=== PATIENT | female | born 1960 | race African-American/Black ===

== ENCOUNTER 2017-02-01 15:35 | Inpatient (IN) | payer OTHER ==
[~2017-02-01] VITALS: Ht 160 cm; Wt 81.6 kg
[2017-02-01] MEDS ORDERED: ONDANSETRON HCL 4MG/2ML VIAL IV STA (16:08)
[2017-02-01] MEDS ORDERED: MORPHINE SULFATE 4 MG/ML CPJ (NOT FOR IM USE) IV STA (16:08)
[2017-02-01 16:48] LABS: BASOPHILS % 0.8 % (0.0-2.0); EOSINOPHILS % 1.7 % (0.0-5.0); HEMATOCRIT. 39.4 % (36.0-48.0); HEMOGLOBIN. 13.1 g/dL (12.0-16.0); LYMPHOCYTES % 32.5 % (20.0-50.0); MEAN CORPUSCULAR HEMOGLOBIN 29.2 pg (28.0-32.0); MEAN CORPUSCULAR VOLUME 87.8 fL (81.0-99.0); MEAN PLATELET VOLUME 7.4 fl (7.4-10.4); PLATELET 314 x1000/uL (130-400); RED BLOOD CELL COUNT 4.49 mill/uL (4.2-5.4); RED CELL DISTRIBUTION WIDTH 14.5 % (11.6-14.6)
[2017-02-01 16:50] LABS: CARBON DIOXIDE 25 mEq/L (21-32); CHLORIDE 106 mEq/L (98-107); INR 1.1; PROTHROMBIN TIME 11.5 sec (9.4-11.6)
[2017-02-01 16:58] LABS: TROPONIN I < 0.02 ng/mL (0.00-0.04)
[2017-02-01] MEDS ORDERED: ASPIRIN 325MG EC TABLET PO ONE (17:30)
[2017-02-01 22:00] VITALS: BP 119/65
[2017-02-01] MEDS ORDERED: ENOXAPARIN 40MG/0.4ML SYR SUBCUT SCH (23:15)
[2017-02-01] MEDS ORDERED: CLONIDINE 0.1MG TABLET PO PRN (23:15)
[2017-02-01] MEDS ORDERED: DIPHENHYDRAMINE 50MG/ML VIAL IV PRN (23:15)
[2017-02-01] MEDS ORDERED: HYDROCODONE/ACETAMINOPHEN 5/325MG TABLET PO PRN (23:15)
[2017-02-01] MEDS ORDERED: MORPHINE SULFATE 2 MG/ML CPJ (NOT FOR IM USE) IV PRN (23:15)
[2017-02-01] MEDS ORDERED: ONDANSETRON HCL 4MG/2ML VIAL IV PRN (23:15)
[2017-02-02] MEDS ORDERED: ASPI-986 PO (01:45)
[2017-02-02 08:00] VITALS: BP 158/75
[2017-02-02] MEDS: ENOXAPARIN 30MG/0.3ML SYR SUBCUT SCH ×2 (08:34→08:38)
[2017-02-02] MEDS ORDERED: THIAMINE HCL 100MG TABLET PO SCH (09:00)
[2017-02-02] MEDS ORDERED: ASPIRIN 81MG EC TABLET PO SCH (09:00)
[2017-02-02 09:14] LABS: CREATINE KINASE 86 IU/L (26-192); CREATINE KINASE MB FRACTION < 0.5 ng/mL (0.5-3.6); TROPONIN I < 0.02 ng/mL (0.00-0.04)
[2017-02-02 10:13] LABS: BASOPHILS % 0.5 % (0.0-2.0); EOSINOPHILS % 1.3 % (0.0-5.0); HEMATOCRIT. 41.3 % (36.0-48.0); HEMOGLOBIN. 13.9 g/dL (12.0-16.0); LYMPHOCYTES % 30.5 % (20.0-50.0); MEAN CORPUSCULAR HEMOGLOBIN 29.7 pg (28.0-32.0); MEAN CORPUSCULAR VOLUME 88.6 fL (81.0-99.0); MEAN PLATELET VOLUME 7.8 fl (7.4-10.4); MONOCYTES % 6.6 % (2.0-8.0); NEUTROPHILS % 61.1 % (40.0-76.0); PLATELET 331 x1000/uL (130-400); RED BLOOD CELL COUNT 4.66 mill/uL (4.2-5.4); RED CELL DISTRIBUTION WIDTH 14.6 % (11.6-14.6)
[2017-02-02 10:16] LABS: CHLORIDE 105 mEq/L (98-107)
[2017-02-02 10:25] LABS: CARBON DIOXIDE 22 mEq/L (21-32)
[2017-02-02 12:00] VITALS: BP 139/62
[2017-02-02 15:32] LABS: CLARITY URINE CLEAR (CLEAR); COLOR URINE YELLOW (YELLOW); GLUCOSE URINE NEGATIVE (NEGATIVE); KETONES URINE NEGATIVE (NEGATIVE); LEUKOCYTE ESTERASE URINE NEGATIVE (NEGATIVE); NITRITE URINE NEGATIVE (NEGATIVE); OCCULT BLOOD URINE NEGATIVE (NEGATIVE); PROTEIN URINE NEGATIVE (NEGATIVE); SPECIFIC GRAVITY URINE 1.018 (1.005-1.030)
[2017-02-02 15:57] LABS: *AMPHETAMINES SCREEN URINE NEGATIVE (NEGATIVE); *BARBITURATES SCREEN URINE NEGATIVE (NEGATIVE); *BENZODIAZEPINES SCREEN URINE NEGATIVE (NEGATIVE); *COCAINE SCREEN URINE NEGATIVE (NEGATIVE); CANNABINOID URINE SCREEN NEGATIVE (NEGATIVE); METHADONE URINE SCREEN NEGATIVE (NEGATIVE); OPIATES URINE SCREEN NEGATIVE (NEGATIVE); PHENCYCLIDINE URINE SCREEN NEGATIVE (NEGATIVE)
[2017-02-02 16:00] VITALS: BP 143/71
[2017-02-02 17:06] LABS: CREATINE KINASE 91 IU/L (26-192); CREATINE KINASE MB FRACTION < 0.5 ng/mL (0.5-3.6); TROPONIN I < 0.02 ng/mL (0.00-0.04)
[2017-02-02 20:00] VITALS: BP 145/73
[2017-02-02 21:34] VITALS: BP 145/73
[2017-02-03] MEDS ORDERED: ENOXAPARIN 40MG/0.4ML SYR SUBCUT SCH (09:00)
== END 2017-02-02 22:10 | disposition short-term general hospital (02) | DRG 392 ==
LOC: ER 15:35 → 6WST 17:22 → EDBEDREQ 17:24 → ENRESERV 21:04
PROVIDERS: ADMIT Internal Medicine Nephrology; ATTEND Internal Medicine Nephrology
DX: K21.9 Gastro-esophageal reflux disease without esophagitis (principal); E78.00 Pure hypercholesterolemia, unspecified; E78.5 Hyperlipidemia, unspecified; I10 Essential (primary) hypertension; F17.200 Nicotine dependence, unspecified, uncomplicated; Z90.10 Acquired absence of unspecified breast and nipple; Z85.9 Personal history of malignant neoplasm, unspecified; Z71.6 Tobacco abuse counseling
CPT/HCPCS: 36415; 71010; 80053; 80305; 81003; 82550; 82553; 83880; 84484; 85025; 85610; 93005; 93306; 93970; 99285; 99406; J1650; J2270; J2405

== ENCOUNTER 2024-04-07 17:42 | Inpatient (IN) | payer OTHER, MEDICAID ==
[~2024-04-07] VITALS: Ht 157.5 cm; Wt 69.9 kg
[2024-04-07 18:29] LABS: BASOPHILS % 0.5 % (0.0-2.0); EOSINOPHILS % 2.4 % (0.0-5.0); HEMOGLOBIN 10.7 g/dL (12.0-16.0); HEMOGLOBIN. 10.7 g/dL (12.0-16.0); LYMPHOCYTES % 25.2 % (20.0-50.0); MEAN CORPUSCULAR HEMOGLOBIN 28.6 pg (28.0-32.0); MEAN CORPUSCULAR HGB CONC 32.5 g/dL (31.0-37.0); MEAN CORPUSCULAR VOLUME 88.1 fL (81.0-99.0); MEAN PLATELET VOLUME 7.1 fl (7.4-10.4); NEUTROPHILS % 65.9 % (40.0-76.0); PLATELET 354 x1000/uL (130-400); RED BLOOD CELL COUNT 3.74 mill/uL (4.2-5.4); RED CELL DISTRIBUTION WIDTH 14.7 % (11.6-14.6); WHITE BLOOD COUNT 7.2 x1000/uL (4.5-11.0)
[2024-04-07 18:38] LABS: CARBON DIOXIDE 25 mEq/L (21-32); CHLORIDE 107 mEq/L (98-107); POTASSIUM 3.9 mEq/L (3.5-5.1); SODIUM 139 mEq/L (136-145)
[2024-04-07 18:39] LABS: CALCIUM 9.2 mg/dL (8.7-10.4)
[2024-04-07 18:42] LABS: INR 1.1; PROTHROMBIN TIME 12.1 sec (9.6-11.0)
[2024-04-07 18:43] LABS: CREATININE 0.9 mg/dL (0.6-1.0)
[2024-04-07 18:44] LABS: GLUCOSE 101 mg/dL (70-105); UREA NITROGEN BLOOD 21 mg/dL (9-23)
[2024-04-07 18:45] LABS: ALANINE AMINOTRANSFERASE 26 IU/L (10-49); ASPARTATE AMINOTRANSFERASE 17 IU/L (<34); TROPONIN I HIGH SENSITIVITY 4 ng/L (3.0-34)
[2024-04-07 18:46] LABS: ALBUMIN 3.6 g/dL (3.2-4.8); BILIRUBIN TOTAL 0.2 mg/dL (0.1-1.0); PROTEIN TOTAL 6.5 g/dL (6.0-8.3)
[2024-04-07 18:54] LABS: BILIRUBIN DIRECT < 0.1 mg/dL (<=3.0)
[2024-04-07] MEDS: SODIUM CHLORIDE 0.9% (SEPSIS BOLUS) IV ONE (20:24)
[2024-04-07] MEDS ORDERED: ONDANSETRON HCL 4MG/2ML INJ IV PRN (21:45)
[2024-04-07] MEDS ORDERED: NITROGLYCERIN 0.4MG TABLET SL SL PRN (21:45)
[2024-04-07] MEDS ORDERED: IPRATROPIUM/ALBUTEROL 0.5-3(2.5)MG/3ML NEB NEB PRN (21:45)
[2024-04-07] MEDS ORDERED: KETOROLAC 15MG/ML VIAL IV PRN (21:45)
[2024-04-07] MEDS ORDERED: GUAIFENESIN 200MG/10ML SUGAR FREE UDC PO PRN (21:45)
[2024-04-07] MEDS ORDERED: ACETAMINOPHEN 325MG TABLET PO PRN ×2 (21:45)
[2024-04-07] MEDS ORDERED: NA PHOS,M-B/NA PHOS,DI-BA ENEMA 118ML PR PRN (21:45)
[2024-04-07] MEDS ORDERED: CLONIDINE 0.1MG TABLET PO PRN (21:45)
[2024-04-07] MEDS ORDERED: DOCUSATE SODIUM 100MG CAPSULE PO PRN (21:45)
[2024-04-07] MEDS ORDERED: MAGNESIUM/ALUMINUM HYDROXIDE/SIMETHICONE 30ML UDC PO PRN (21:45)
[2024-04-07] MEDS: AMOXICILLIN/POTASSIUM CLAVULANATE 875/125MG TAB PO NR (21:57)
[2024-04-07] MEDS: LACTATED RINGERS 1,000 ML IV SCH (22:39)
[2024-04-07 22:55] LABS: IRON 32 ug/dL (50-170)
[2024-04-07 22:56] LABS: TRIGLYCERIDE 97 mg/dL (0-150)
[2024-04-07 22:57] LABS: LDL CHOLESTEROL 111 mg/dL (5-100)
[2024-04-07 22:58] LABS: CHOLESTEROL 154 mg/dL (<200); HDL CHOLESTEROL 31 mg/dL (>65); TOTAL IRON BINDING CAPACITY 323 ug/dl (250-425)
[2024-04-07 23:01] LABS: T4 FREE 1.28 ng/dL (0.89-1.76); THYROID STIMULATING HORMONE 0.65 uIU/mL (0.55-4.78)
[2024-04-07 23:14] LABS: VITAMIN B12 SERUM 293 pg/mL (211-911)
[2024-04-07] MEDS: IOHEXOL-300 100 ML BOTTLE ONE (23:40)
[2024-04-08] VITALS (7 sets, daily range): BP systolic 120–138; BP diastolic 46–79; PULSE 64–85; RESP 18–20; TEMP 36.3918–37.00296; O2SAT 98–100
[2024-04-08 00:21] LABS: TROPONIN I HIGH SENSITIVITY 5 ng/L (3.0-34)
[2024-04-08] MEDS ORDERED: EZETIMIBE PO (05:38)
[2024-04-08] MEDS ORDERED: EMPA25TA PO (05:38)
[2024-04-08] MEDS ORDERED: CLOP75TA33 PO (05:38)
[2024-04-08] MEDS ORDERED: MIRT-89 PO (05:38)
[2024-04-08] MEDS ORDERED: LISI-186 PO (05:38)
[2024-04-08 08:07] LABS: CHLORIDE 110 mEq/L (98-107); POTASSIUM 4.2 mEq/L (3.5-5.1); SODIUM 141 mEq/L (136-145)
[2024-04-08 08:08] LABS: CARBON DIOXIDE 17 mEq/L (21-32)
[2024-04-08 08:09] LABS: CALCIUM 7.5 mg/dL (8.7-10.4)
[2024-04-08 08:14] LABS: GLUCOSE 57 mg/dL (70-105)
[2024-04-08 08:15] LABS: ALANINE AMINOTRANSFERASE 11 IU/L (10-49); ASPARTATE AMINOTRANSFERASE 8 IU/L (<34); UREA NITROGEN BLOOD 12 mg/dL (9-23)
[2024-04-08 08:17] LABS: BILIRUBIN TOTAL 0.2 mg/dL (0.1-1.0); PHOSPHORUS 1.8 mg/dL (2.5-4.9)
[2024-04-08 08:48] LABS: BASOPHILS % 0.3 % (0.0-2.0); HEMATOCRIT. 25.4 % (36.0-48.0); HEMOGLOBIN. 8.2 g/dL (12.0-16.0); LYMPHOCYTES % 23.1 % (20.0-50.0); MEAN CORPUSCULAR HEMOGLOBIN 28.7 pg (28.0-32.0); MEAN CORPUSCULAR HGB CONC 32.5 g/dL (31.0-37.0); MEAN CORPUSCULAR VOLUME 88.5 fL (81.0-99.0); MEAN PLATELET VOLUME 7.2 fl (7.4-10.4); MONOCYTES % 6.8 % (2.0-8.0); NEUTROPHILS % 67.8 % (40.0-76.0); PLATELET 243 x1000/uL (130-400); RED BLOOD CELL COUNT 2.86 mill/uL (4.2-5.4); RED CELL DISTRIBUTION WIDTH 14.7 % (11.6-14.6); WHITE BLOOD COUNT 6.2 x1000/uL (4.5-11.0)
[2024-04-08] MEDS: PANTOPRAZOLE SODIUM 40 MG/VIAL IV SCH (09:00)
[2024-04-08 09:25] LABS: CREATININE 0.4 mg/dL (0.6-1.0); PROTEIN TOTAL 3.6 g/dL (6.0-8.3)
[2024-04-08] MEDS: MAGNESIUM 4 G PREMIX 100 ML IV NR (14:09)
[2024-04-08] MEDS: SODIUM CHLORIDE 0.9% IV NR (21:09)
[2024-04-08] MEDS: SODIUM PHOSPHATE IV NR (21:09)
[2024-04-08 21:28] LABS: HEMATOCRIT 27.6 % (36.0-48.0); HEMOGLOBIN 9.1 g/dL (12.0-16.0)
== END 2024-04-08 22:35 | disposition short-term general hospital (02) | DRG 378 ==
LOC: ER 17:42 → 7WST 04-08 00:38
PROVIDERS: ADMIT Internal Medicine; ATTEND Internal Medicine
DX: K57.33 Diverticulitis of large intestine without perforation or abscess with bleeding (principal); D62 Acute posthemorrhagic anemia; E78.00 Pure hypercholesterolemia, unspecified; I10 Essential (primary) hypertension; Z90.49 Acquired absence of other specified parts of digestive tract; I25.2 Old myocardial infarction; Z85.3 Personal history of malignant neoplasm of breast
CPT/HCPCS: 36415; 74177; 80048; 80053; 80061; 80076; 82270; 82607; 82746; 83036; 83540; 83550; 83605; 83735; 84100; 84439; 84443; 84484; 85014; 85018; 85025; 86850; 86900; 93970; 99285; J2470; J3475; J3490; J7030; J7050; Q9967